=== PATIENT | female | born 1990 | race Caucasian/White ===

== ENCOUNTER 2019-12-25 01:05 | Emergency (ER) | payer BC ==
[2019-12-25] MEDS ORDERED: Azithromycin 250 MG Tab PO ONE (02:06)
[2019-12-25] MEDS ORDERED: Ibuprofen Susp 100 MG/5 ML 10 ML UD Cup PO ONE (02:06)
--- NOTE | 2019-12-25 02:11 | EDM.PDOC ---
ED HPI GENERAL MEDICAL PROBLEM - General Chief Complaint: ENT Problem Stated Complaint: SORE THROAT Time Seen by Provider: 12/25/19 02:03 - History of Present Illness INITIAL COMMENTS - FREE TEXT/NARRATIVE: HISTORY AND PHYSICAL: History of present illness: This is a 29-year-old female who presents ER today complaining of pain to her throat x1 to 2 days. Patient reports that it feels like razor blades in the back of her throat when she swallows. 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 Patient denies any fevers, shakes, chills, nausea, vomiting, diarrhea, dysuria, frequency, urgency. Patient denies any chest pain or shortness of breath. Patient reports she is got occasional cough with no sputum. Patient denies any abdominal discomfort. Patient denies any history of hypertension, diabetes, liver, lung, kidney problems. Patient denies any tobacco or drugs. Patient reports she does drink alcohol occasionally. Patient has no known drug allergies. Review of systems: As per history of present illness and below otherwise all systems reviewed and negative. Past medical history: As per history of present illness and as reviewed below otherwise noncontributor y. Surgical history: As per history of present illness and as reviewed below otherwise noncontributory. Social history: No reported history of drug or alcohol abuse. Family history: As per history of present illness and as reviewed below otherwise noncontributory. Physical exam: Constitutional: Patient is oriented to person, place, and time. Appears well- developed and well-nourished. No distress. HEENT: Moist mucous membranes Head: Normocephalic and atraumatic Eyes: Right eye exhibits no discharge. Left eye exhibits no discharge. No scleral icterus Neck: Normal range of motion. No tracheal deviation present. Cardiovascular: Normal rate and regular rhythm. Pulmonary: Effort normal, no respiratory distress. Abdominal: No distention Musculoskeletal: Normal range of motion Neurologic: Alert and oriented to person, place and time. Skin: [place], warm and dry. Psychiatric: Normal mood and affect. Behavior is normal. Judgment and thought content normal. Nursing note and vital signs have been reviewed Patient's ER physical exam is significant for bilateral erythematous tonsils with a small amount of exudate in her right tonsil. Patient's airway is intact. No stridor. No airway compromise. No trismus. Patient has mild bilateral tender lymphadenopathy submandibular. Patient's tympanic membrane's are clear. No erythema. Neck supple, no nuchal rigidity, no photophobia, no Kernig's sign or Brudzinski sign, patient does not present with signs or symptoms of be consistent with meningitis. Diagnostics: Strep screen: Patient deferred. Patient clinical exam is consistent with strep throat and patient prefers empiric therapy without the cost of the time of strep screen. Therapeutics: Zithromax/ibuprofen Assessment and plan: 29-year-old female who presents ER today with signs symptoms consistent with strep throat. Patient be started on Zithromax and ibuprofen for pain. Reassessment at the time of disposition demonstrates that the patient is in no acute distress. The patient has remained stable throughout the entire ED visit and is without objective evidence for acute process requiring urgent intervention or hospitalization. The patient is stable for discharge, counseling is provided as documented above, discussed symptomatic treatment and specific conditions for return. I have spoken with the patient/caregiver and discussed todays findings, in addition to providing specific details for the plan of care. Questions are answered and there is agreement with the plan. Definitive disposition and diagnosis as appropriate pending reevaluation and review of above. THROAT Pain Score (Numeric/FACES): 10 - Related Data Allergies Allergy/AdvReac Type Severity Reaction Status Date / Time No Known Allergies Allergy Verified 12/25/19 01:21 Home Meds: Home Meds Azithromycin [Zithromax] 250 mg PO DAILY #4 tablet 12/25/19 [Rx] Ibuprofen 600 mg PO Q6HR PRN #30 tablet 12/25/19 [Rx] Past Medical History - Past Health History Medical/Surgical History: Denies Medical/Surgical History Social & Family History - Family History Family Medical History: Noncontributory ED ROS GENERAL - Review of Systems Review Of Systems: See Below ED EXAM, GENERAL - Physical Exam Exam: See Below Course - Vital Signs Last Recorded V/S: Last Vital Signs Temp 97 F 12/25/19 01:18 Pulse 100 12/25/19 01:18 Resp 16 12/25/19 01:18 BP 121/90 12/25/19 01:18 Pulse Ox 98 12/25/19 01:18 - Orders/Labs/Meds Orders: Active Orders 24 hr Category Date Time Status Ibuprofen [Motrin 100 MG/5 ML Susp] Med 12/25/19 02:06 Once 400 mg PO ONETIME ONE Meds: Medications Discontinued Medications Generic Name Dose Route Start Last Admin Trade Name Minh SALVADOR Reason Stop Dose Admin Azithromycin 500 mg 12/25/19 02:06 Zithromax PO 12/25/19 02:07 Q24H ONE Departure - Departure Time of Disposition: 02:10 Disposition: Home, Self-Care 01 Condition: Good Clinical Impression: Pharyngitis - Discharge Information Instructions: Pharyngitis Referrals: Gabbie Osei, REPAIR DEPARTMENT MANAGER [Primary Care Provider] - Additional Instructions: You were seen and evaluated in the ER today secondary to your sore throat. Your clinical presentation is consistent with strep throat. You will be started on Zithromax to take daily for a total of 5 days. You can also take ibuprofen to assist you with your pain. The following information is given to patients seen in the emergency department who are being discharged to home. This information is to outline your options for follow-up care. We provide all patients seen in our emergency department with a follow-up referral. The need for follow-up, as well as the timing and circumstances, are variable depending upon the specifics of your emergency department visit. If you don't have a primary care physician on staff, we will provide you with a referral. We always advise you to contact your personal physician following an emergency department visit to inform them of the circumstance of the visit and for follow-up with them and/or the need for any referrals to a consulting specialist. The emergency department will also refer you to a specialist when appropriate. This referral assures that you have the opportunity for follow-up care with a specialist. All of these measure are taken in an effort to provide you with optimal care, which includes your follow-up. Under all circumstances we always encourage you to contact your private physician who remains a resource for coordinating your care. When calling for follow-up care, please make the office aware that this follow-up is from your recent emergency room visit. If for any reason you are refused follow-up, please contact the [facility] Emergency Department at and asked to speak to the emergency department charge nurse. Luisito Yao [facility] [address] [place] [id number] [facility] [address] [place] [id number] Sepsis Event Note (ED) - Evaluation Sepsis Screening Result: No Definite Risk - Focused Exam Vital Signs: Vital Signs Temp Pulse Resp BP Pulse Ox 12/25/19 01:18 97 F 100 16 121/90 98 - My Orders Last 24 Hours: My Active Orders 12/25/19 02:06 Ibuprofen [Motrin 100 MG/5 ML Susp] 400 mg PO ONETIME ONE - Assessment/Plan Last 24 Hours: My Active Orders 12/25/19 02:06 Ibuprofen [Motrin 100 MG/5 ML Susp] 400 mg PO ONETIME ONE
== END 2019-12-25 02:27 | disposition home or self-care (01) ==
LOC: MW.ED 01:05
DX: J02.9 Acute pharyngitis, unspecified (principal)
CPT/HCPCS: 99282; A9270

== ENCOUNTER 2021-04-11 00:28 | Emergency (ER) | payer OTHER, BC | END 2021-04-11 01:55 | disposition home or self-care (01) | LOC: MW.ED 00:28 | DX: S01.01XA Laceration without foreign body of scalp, initial encounter (principal); S16.1XXA Strain of muscle, fascia and tendon at neck level, initial encounter; W18.09XA Striking against other object with subsequent fall, initial encounter | CPT/HCPCS: 72125; 72125-26; 99283-25 ==

== ENCOUNTER 2023-05-26 12:22 | Emergency (ER) | payer BC ==
[2023-05-26] MEDS: LORazepam 0.5 MG Tab PO ONE (13:00)
[2023-05-26] MEDS: Sodium Chloride 0.9% 1,000 ML IV ONE (13:01)
[2023-05-26 13:02] LABS: BASOPHILS ABSOLUTE AUTO 0.03 K/uL (0.00-0.20); BASOPHILS PERCENT AUTO 0.4 % (0.0-1.0); EOSINOPHILS ABSOLUTE AUTO 0.09 K/uL (0.00-0.45); EOSINOPHILS PERCENT AUTO 1.1 % (0.0-6.0); HEMATOCRIT 42.5 % (37.0-47.0); HEMOGLOBIN 14.6 g/dL (12.0-16.0); IMMATURE GRAN ABSOLUTE AUTO 0.01 K/uL (0.00-0.05); IMMATURE GRAN PERCENT AUTO 0.1 % (0.0-0.4); LYMPHOCYTES ABSOLUTE AUTO 1.62 K/uL (1.00-4.80); LYMPHOCYTES PERCENT AUTO 19.1 % (24.0-44.0); MEAN CORPUSCULAR HGB CONC 34.4 g/dL (32.0-36.0); MEAN CORPUSCULAR VOLUME 84.3 fL (83.0-99.0); MEAN PLATELET VOLUME 9.9 fL (9.4-12.3); MONOCYTES ABSOLUTE AUTO 0.49 K/uL (0.00-0.80); MONOCYTES PERCENT AUTO 5.8 % (0.0-8.0); NEUTROPHILS ABSOLUTE AUTO 6.22 K/uL (1.80-7.70); NEUTROPHILS PERCENT AUTO 73.5 % (41.0-71.0); PLATELET COUNT,PLT 292 K/uL (150-400); RED BLOOD CELL COUNT 5.04 M/uL (4.10-5.30); WHITE BLOOD CELL COUNT,WBC 8.46 K/uL (3.9-11.3)
[2023-05-26 13:36] LABS: A/G RATIO 0.9 (0.9-1.6); ALANINE AMINOTRANSFERASE,ALT 28 IU/L (14-63); ALBUMIN 3.6 g/dL (3.4-5.0); ALKALINE PHOSPHATASE 86 U/L (46-116); ASPARTATE AMNIOTRANSFERASE,AST 18 IU/L (15-37); BILIRUBIN TOTAL 0.5 mg/dL (0.2-1.0); BLOOD UREA NITROGEN,BUN 12 mg/dL (7.0-18.0); CALCIUM 9.1 mg/dL (8.5-10.1); CARBON DIOXIDE,CO2 28.2 mmol/L (21.0-32.0); CHLORIDE,CL 103 mmol/L (98-107); CREATININE 0.8 mg/dL (0.6-1.0); EST CRCL DRUG DOSING (CG) 73.86 mL/min; GLUCOSE RANDOM 98 mg/dL (74-106); PROTEIN TOTAL,TP 7.6 g/dL (6.4-8.2); SODIUM,NA 139 mmol/L (136-145); TSH ULTRASENSITIVE 2.06 uIU/mL (0.36-3.74)
[2023-05-26 13:40] LABS: CORONAVIRUS COVID-19 NAA NEGATIVE (NEGATIVE); INFLUENZA A NAA NEGATIVE (NEGATIVE); INFLUENZA B NAA NEGATIVE (NEGATIVE)
[2023-05-26] MEDS: Ketorolac 30 MG/ML SDV IVPUSH ONE (13:44)
[2023-05-26 13:46] LABS: ESTIMATED GFR 102 mL/min (>60)
[2023-05-26] MEDS: Alum Hydro/Mag Hydro/Simeth XS 15 ML, Lidocaine 2% 5 ML PO ONE (14:09)
== END 2023-05-26 15:01 | disposition home or self-care (01) ==
LOC: MW.ED 12:22
DX: R07.9 Chest pain, unspecified (principal); Z75.8 Other problems related to medical facilities and other health care
CPT/HCPCS: 0240U; 36415; 71045; 80053; 81025; 84443; 84484; 85025; 85379; 93005; 96361; 96374; 99285; A9270; J1885; J7030; 93010; 99284

== ENCOUNTER 2024-08-14 02:30 | Emergency (ER) | payer BC ==
[2024-08-14] MEDS: Acetaminophen/HYDROcodone 325-10 MG Tab PO ONE (03:10)
== END 2024-08-14 04:16 | disposition home or self-care (01) ==
LOC: MW.ED 02:30
DX: S00.03XA Contusion of scalp, initial encounter (principal); S40.012A Contusion of left shoulder, initial encounter; S80.212A Abrasion, left knee, initial encounter; Z79.899 Other long term (current) drug therapy; W19.XXXA Unspecified fall, initial encounter; Y09 Assault by unspecified means
CPT/HCPCS: 70450; 70486; 72125; 99284; A9270

== ENCOUNTER 2024-08-17 01:06 | Emergency (ER) | payer BC | END 2024-08-17 02:18 | disposition home or self-care (01) | LOC: MW.ED 01:06 | DX: S06.0X9D Concussion with loss of consciousness of unspecified duration, subsequent encounter (principal); R20.2 Paresthesia of skin; H57.89 Other specified disorders of eye and adnexa; H05.222 Edema of left orbit; Z79.899 Other long term (current) drug therapy; X58.XXXA Exposure to other specified factors, initial encounter | CPT/HCPCS: 99283; J8540 ==

== ENCOUNTER 2024-09-17 18:21 | Emergency (ER) | payer BC ==
[2024-09-17] MEDS: Ondansetron 4 MG/2 ML SDV IVPUSH ONE (20:07)
[2024-09-17 20:16] LABS: BASOPHILS ABSOLUTE AUTO 0.03 K/uL (0.00-0.20); BASOPHILS PERCENT AUTO 0.4 % (0.0-1.0); EOSINOPHILS ABSOLUTE AUTO 0.12 K/uL (0.00-0.45); EOSINOPHILS PERCENT AUTO 1.4 % (0.0-6.0); IMMATURE GRAN ABSOLUTE AUTO 0.02 K/uL (0.00-0.05); IMMATURE GRAN PERCENT AUTO 0.2 % (0.0-0.4); LYMPHOCYTES ABSOLUTE AUTO 2.06 K/uL (1.00-4.80); LYMPHOCYTES PERCENT AUTO 24.3 % (24.0-44.0); MEAN PLATELET VOLUME 10.2 fL (9.4-12.3); MONOCYTES ABSOLUTE AUTO 0.66 K/uL (0.00-0.80); MONOCYTES PERCENT AUTO 7.8 % (0.0-8.0); NEUTROPHILS ABSOLUTE AUTO 5.57 K/uL (1.80-7.70); NEUTROPHILS PERCENT AUTO 65.9 % (41.0-71.0); NRBC ABSOLUTE 0.00 K/uL (0.00-0.02); NRBC PERCENT 0.0 /100WBC (0.0-0.2); PLATELET COUNT,PLT 302 K/uL (150-400); RED BLOOD CELL COUNT 4.99 M/uL (4.10-5.30); WHITE BLOOD CELL COUNT,WBC 8.46 K/uL (3.9-11.3)
[2024-09-17 20:21] LABS: APPEARANCE,URINE CLEAR; GLUCOSE,URINE NEGATIVE (NEGATIVE); OCCULT BLOOD,URINE SMALL (NEGATIVE)
[2024-09-17 20:34] LABS: EPITHELIAL CELLS,URINE RARE (NONE-FEW)
[2024-09-17 20:42] LABS: BLOOD UREA NITROGEN,BUN 11 mg/dL (7.0-18.0); CARBON DIOXIDE,CO2 26.0 mmol/L (21.0-32.0); CHLORIDE,CL 103 mmol/L (98-107); CREATININE 0.9 mg/dL (0.6-1.0); GLUCOSE RANDOM 94 mg/dL (74-106); POTASSIUM,K 3.9 mmol/L (3.5-5.1); SODIUM,NA 139 mmol/L (136-145)
[2024-09-17 20:47] LABS: ESTIMATED GFR 87 mL/min (>60)
== END 2024-09-17 21:12 | disposition home or self-care (01) ==
LOC: MW.ED 18:21
DX: R42 Dizziness and giddiness (principal); F07.81 Postconcussional syndrome; Z79.899 Other long term (current) drug therapy
CPT/HCPCS: 36415; 70450; 80048; 81001; 81025; 85025; 96374; 99284; A9270; J2405; J7030; 99283